=== PATIENT | male | born 1950 | race Caucasian/White ===

== ENCOUNTER 2025-09-08 16:56 | Emergency (ER) | payer OTHER ==
[2025-09-08 17:14] VITALS: BP 158/80; PULSE 77; RESP 18; TEMP 98.1; BMI 23.7
[2025-09-08] MEDS ORDERED: ALBUTEROL SO4 2.5/IPRATROPIUM 0.5 INH SOL 3 ML VIAL.NEB. NEB ONE (18:11)
[2025-09-08] MEDS: ALBUTEROL SO4 2.5/IPRATROPIUM 0.5 INH SOL 3 ML VIAL.NEB. NEB ONE (18:30)
[2025-09-08 19:39] LABS: ABSOLUTE IMMATURE GRANULOCYTES 0.02 x10^3/uL (0.0-0.031); BASOPHILS # 0.01 x10^3/uL (0.01-0.08); EOSINOPHIL % 3.0 % (0.8-7.0); EOSINOPHILS # 0.27 x10^3/uL (0.04-0.54); MCHC 33.7 g/dl (32.3-36.5); MEAN CELL VOLUME 93.5 fl (79.0-92.2); MEAN PLT VOLUME 10.1 fl (9.4-12.4); MONOCYTE # 0.76 x10^3/uL (0.30-0.82); MONOCYTE % 8.4 % (5.3-12.2); RDW 12.4 % (12.2-16.6)
[2025-09-08 19:56] LABS: ALK PHOS 67.0 U/L (45-117); CO2 28.0 mmol/L (21-32); CREATININE 1.4 mg/dl (0.6-1.3); GLUCOSE,RANDOM 80.0 mg/dl (74-106); SGOT/AST 16.0 U/L (15-37); SGPT/ALT 17.0 U/L (7-52); TOT PROT 6.4 g/dl (6.4-8.2)
[2025-09-08 20:56] LABS: HIV INTERPRETATION NEGATIVE (NEGATIVE)
[2025-09-08 20:57] LABS: HCV DIAGNOSTIC IN-HOUSE W/RFLX NON-REACTIVE (NONREACTIVE)
[2025-09-08 21:45] LABS: N-TERMINAL BNP 87.4 pg/mL (0-299.9)
== END 2025-09-08 20:23 | disposition home or self-care (01) ==
LOC: FER 16:56
PROC: 3E0F7GC Introduction of Other Therapeutic Substance into Respiratory Tract, Via Natural or Artificial Opening (ICD-10-PCS; principal; 2025-09-08)
DX: J42 Unspecified chronic bronchitis (principal); R05.9 Cough, unspecified; R06.02 Shortness of breath
CPT/HCPCS: 36415; 71045-TC-FY; 80053; 83880; 84484; 85025; 86803; 87389; 93005; 94640; 99285-25